=== PATIENT | male | born 1990 | race Caucasian/White ===

== ENCOUNTER 2022-12-01 22:44 | Emergency (ER) | payer MEDICAID ==
[~2022-12-01] VITALS: Ht 180.3 cm; Wt 77.6 kg
[2022-12-01] MEDS ORDERED: LIDOCAINE 2%-EPI 1:100,000 20 ML VIAL ONE (23:28)
[2022-12-01] MEDS ORDERED: LIDOCAINE 2%-EPI 1:100,000 20 ML VIAL TP ONE (23:30)
[2022-12-02] MEDS ORDERED: SULF1TAB48 PO (00:11)
[2022-12-02 00:21] VITALS: BP 122/68; TEMP 97.8; O2SAT 99
== END 2022-12-02 00:22 | disposition home or self-care (01) ==
LOC: ER 22:50
DX: L02.31 Cutaneous abscess of buttock (principal); F17.210 Nicotine dependence, cigarettes, uncomplicated; Z79.899 Other long term (current) drug therapy
CPT/HCPCS: A4663

== ENCOUNTER 2022-12-04 11:08 | Emergency (ER) | payer MEDICAID ==
[~2022-12-04] VITALS: Ht 182.9 cm; Wt 81.6 kg
[~2022-12-04 11:08] MED LIST: SULF1TAB48 PO
[2022-12-04] MEDS ORDERED: LIDOCAINE 1%-EPI 1:100,000 20 ML VIAL IJ ONE (12:00)
[2022-12-04] MEDS ORDERED: LIDOCAINE 1%-EPI 1:100,000 20 ML VIAL ONE (12:01)
[2022-12-04 12:21] VITALS: BP 132/74; O2SAT 98
== END 2022-12-04 12:22 | disposition home or self-care (01) ==
LOC: ER 11:12
DX: L02.31 Cutaneous abscess of buttock (principal); F17.210 Nicotine dependence, cigarettes, uncomplicated; Z79.899 Other long term (current) drug therapy
CPT/HCPCS: 99282; J3490; A4663